=== PATIENT | male | born 1960 | race Caucasian/White ===

== ENCOUNTER 2016-03-30 10:58 | Inpatient (IN) | payer MEDICARE ==
[~2016-03-30] VITALS: Ht 180.3 cm; Wt 95.3 kg
[2016-03-30 11:24] LABS: BASOPHILS % (AUTO) 0.4 % (0.0-2.0); DIFF TOTAL % 100 %; EOSINOPHILS # (AUTO) 0.1 /CMM (0.0-0.7); EOSINOPHILS % (AUTO) 0.6 % (0.0-6.0); HEMATOCRIT 35 % (39-51); HEMOGLOBIN 11.8 g/dL (13.5-17.5); LYMPHOCYTES # (AUTO) 0.7 /CMM (0.8-4.8); LYMPHOCYTES % (AUTO) 7.3 % (20.0-44.0); MEAN CORPUSCULAR HEMOGLOBIN 30 PG (26.0-33.0); MEAN CORPUSCULAR HGB CONC 33 g/dl (31.0-36.0); MEAN CORPUSCULAR VOLUME 88 fL (80-96); MONOCYTES # (AUTO) 0.6 /CMM (0.1-1.30); MONOCYTES % (AUTO) 6.2 % (2.0-12.0); NEUTROPHILS % (AUTO) 85.5 % (43.0-81.0); PLATELET COUNT (AUTO) 248 /CMM (150-450); WHITE BLOOD COUNT (AUTO) 9.4 K/uL (4.3-11.0)
[2016-03-30 11:41] LABS: INR 1.11 (0.87-1.13)
[2016-03-30 11:46] LABS: ALBUMIN 4.1 g/dL (3.4-5.0); BILIRUBIN,DIRECT 0.2 mg/dL (0.0-0.2); BILIRUBIN,TOTAL 0.6 mg/dL (0.2-1.0); CALCIUM, SERUM 9.3 mg/dL (8.5-10.1); INDIRECT BILIRUBIN 0.4 mg/dL (0.0-1.1); TOTAL PROTEIN, SERUM 8.2 g/dL (6.4-8.2); TROPONIN I 0.133 ng/mL (0.00-0.056)
[2016-03-30 11:49] LABS: CREATININE 10.4 mg/dL (0.6-1.3); POTASSIUM 6.6 mmol/L (3.5-5.1)
[2016-03-30] MEDS ORDERED: DEXTROSE 50%-WATER 50 ML DISP.SYRIN ONE (11:54)
[2016-03-30] MEDS ORDERED: INSULIN REGULAR, HUMAN 100 UNIT/ML 10 ML VIAL ONE (11:54)
[2016-03-30] MEDS ORDERED: INSULIN REGULAR, HUMAN 100 UNIT/ML 10 ML VIAL IV ONE (12:00)
[2016-03-30] MEDS ORDERED: DEXTROSE 50%-WATER 50 ML DISP.SYRIN IV ONE ×2 (12:00)
[2016-03-30] MEDS ORDERED: FUROSEMIDE 40 MG/4 ML VIAL IV ONE (12:00)
[2016-03-30] MEDS ORDERED: FUROSEMIDE 40 MG/4 ML VIAL ONE (12:12)
[2016-03-30] MEDS ORDERED: METO-295 PO (12:22)
[2016-03-30] MEDS ORDERED: METO25TA20 PO (12:22)
[2016-03-30] MEDS ORDERED: VALS80TA2 PO (12:22)
[2016-03-30] MEDS ORDERED: AMIT25TA9 PO (12:22)
[2016-03-30] MEDS ORDERED: CLON0.1T PO (12:22)
[2016-03-30] MEDS ORDERED: SILD20TA PO (12:22)
[2016-03-30] MEDS ORDERED: BLOO-668 IN (12:22)
[2016-03-30] MEDS ORDERED: INSU100V27 SQ (12:22)
[2016-03-30] MEDS ORDERED: PANT40TA4 PO (12:22)
[2016-03-30] MEDS ORDERED: MINO10TA2 PO (12:22)
[2016-03-30] MEDS ORDERED: SEVE800T8 PO (12:22)
[2016-03-30] MEDS ORDERED: NORT25CA PO (12:22)
[2016-03-30] MEDS ORDERED: LABETALOL HCL IV 100MG VIAL ONE (12:42)
[2016-03-30] MEDS ORDERED: LABETALOL HCL IV 100MG VIAL IV ONE (13:00)
[2016-03-30] MEDS ORDERED: hydrALAZINE HCL IV 20 MG VIAL IV ONE (13:30)
[2016-03-30] MEDS ORDERED: hydrALAZINE HCL IV 20 MG VIAL ONE (13:35)
[2016-03-30] MEDS ORDERED: BLOOD SUGAR DIAGNOSTIC 1 EACH STRIP IN SCH (14:00)
[2016-03-30] MEDS ORDERED: ASPIRIN EC 325 MG TABLET.DR PO SCH (14:00)
[2016-03-30] MEDS ORDERED: PANTOPRAZOLE 40 MG TABLET.DR PO SCH (14:00)
[2016-03-30] MEDS: SILDENAFIL CITRATE 20 MG TABLET PO SCH ×2 (14:00→21:00)
[2016-03-30] MEDS: CLONIDINE HCL 0.1 MG TABLET PO SCH ×4 (14:00→22:01)
[2016-03-30] MEDS: METOPROLOL TARTRATE 25 MG TABLET PO SCH ×4 (14:00→22:02)
[2016-03-30] MEDS ORDERED: hydrALAZINE HCL IV 20 MG VIAL IV PRN (14:00)
[2016-03-30] MEDS: VALSARTAN 80 MG TABLET PO SCH ×2 (14:00→15:01)
[2016-03-30] MEDS: BLOOD SUGAR DIAGNOSTIC 1 EACH STRIP IN SCH ×4 (14:57→22:00)
[2016-03-30] MEDS: PANTOPRAZOLE 40 MG VIAL IV SCH (14:58)
[2016-03-30 16:00] VITALS: BP 133/103
[2016-03-30] MEDS ORDERED: ONDANSETRON HCL/PF 4 MG/2 ML VIAL IV PRN (16:00)
[2016-03-30 16:58] LABS: BASOPHILS % (AUTO) 0.5 % (0.0-2.0); DIFF TOTAL % 100 %; EOSINOPHILS % (AUTO) 0.1 % (0.0-6.0); HEMATOCRIT 33 % (39-51); HEMOGLOBIN 11.1 g/dL (13.5-17.5); LYMPHOCYTES # (AUTO) 0.6 /CMM (0.8-4.8); LYMPHOCYTES % (AUTO) 5.7 % (20.0-44.0); MEAN CORPUSCULAR HEMOGLOBIN 29 PG (26.0-33.0); MEAN CORPUSCULAR HGB CONC 33 g/dl (31.0-36.0); MEAN CORPUSCULAR VOLUME 88 fL (80-96); MONOCYTES # (AUTO) 0.9 /CMM (0.1-1.30); MONOCYTES % (AUTO) 9.3 % (2.0-12.0); NEUTROPHILS # (AUTO) 8.2 /CMM (1.8-8.9); NEUTROPHILS % (AUTO) 84.4 % (43.0-81.0); PLATELET COUNT (AUTO) 249 /CMM (150-450); RED BLOOD CELL COUNT(AUTO) 3.79 MIL/uL (4.5-6.0); WHITE BLOOD COUNT (AUTO) 9.8 K/uL (4.3-11.0)
[2016-03-30] MEDS: METOCLOPRAMIDE HCL 10 MG TABLET PO SCH (17:00)
[2016-03-30 17:18] LABS: INR 1.14 (0.87-1.13); PROTHROMBIN TIME 12.3 SECS (9.5-12.7)
[2016-03-30 17:19] LABS: BILIRUBIN,TOTAL 0.6 mg/dL (0.2-1.0); CALCIUM, SERUM 9.1 mg/dL (8.5-10.1); POTASSIUM 5.9 mmol/L (3.5-5.1); TOTAL PROTEIN, SERUM 7.9 g/dL (6.4-8.2)
[2016-03-30 17:20] LABS: ERYTHROCYTE SEDIMENTATION RATE 41 MM/HR (0-20); THYROID STIMULATING HORMONE 1.602 uIU/mL (0.358-3.74)
[2016-03-30 17:22] LABS: CREATININE 10.2 mg/dL (0.6-1.3)
[2016-03-30] MEDS ORDERED: HALOPERIDOL DECANOATE IM 100 MG/ML AMPUL IM ONE (17:30)
[2016-03-30] MEDS: SEVELAMER CARBONATE 800 MG TABLET PO SCH (18:00)
[2016-03-30] MEDS ORDERED: NORTRIPTYLINE HCL 25 MG CAPSULE PO SCH ×2 (18:00)
[2016-03-30] MEDS ORDERED: HALOPERIDOL LACTATE INJ 5 MG/ML VIAL IM ONE (18:00)
[2016-03-30 19:30] VITALS: BP 133/65
[2016-03-30 20:00] VITALS: BP 121/65
[2016-03-30 20:37] LABS: ABG BASE EXCESS 2.8 mmol/L; ABG HCO3 26.9 mmol/L; ABG PCO2 39.5 mmHg (35.0-45.0); ABG PH 7.451 (7.350-7.450); ABG PO2 56.7 mmHg (75.0-100.0); ABG TOTAL HEMOGLOBIN 11.7 G/dL (13.5-18.0); ALLEN TEST Pass; AaDO2 45.7 mmHg; O2Hb 84.7 % (94.0-97.0)
[2016-03-30] MEDS ORDERED: HEPARIN SODIUM, PORCINE 5000 UNITS/1 ML VIAL SQ SCH (21:00)
[2016-03-30] MEDS: AMITRIPTYLINE HCL 25 MG TABLET PO SCH ×2 (22:00→22:02)
[2016-03-31] VITALS: BP 142/53
[2016-03-31] MEDS ORDERED: IV NS 0.9% 1,000 ML ONE (00:34)
[2016-03-31] MEDS ORDERED: IV SET PRIMARY PUMP SET 1 EA INFUS.SET MC ONE (00:34)
[2016-03-31] MEDS: IV NS 0.9% 1,000 ML IV PRN ×2 (00:44→11:21)
[2016-03-31] MEDS: HALOPERIDOL LACTATE INJ 5 MG/ML VIAL IM PRN ×3 (02:25→20:43)
[2016-03-31] MEDS ORDERED: HALOPERIDOL LACTATE INJ 5 MG/ML VIAL ONE (03:57)
[2016-03-31] MEDS ORDERED: HALOPERIDOL LACTATE INJ 5 MG/ML VIAL IM STA (03:58)
[2016-03-31 04:00] VITALS: BP 132/68
[2016-03-31] MEDS: BLOOD SUGAR DIAGNOSTIC 1 EACH STRIP IN SCH ×7 (05:13→21:44)
[2016-03-31 05:53] LABS: BASOPHILS # (AUTO) 0.1 /CMM (0.0-0.2); BASOPHILS % (AUTO) 0.8 % (0.0-2.0); DIFF TOTAL % 100 %; EOSINOPHILS % (AUTO) 0.6 % (0.0-6.0); HEMATOCRIT 32 % (39-51); HEMOGLOBIN 10.7 g/dL (13.5-17.5); LYMPHOCYTES # (AUTO) 0.7 /CMM (0.8-4.8); LYMPHOCYTES % (AUTO) 10.1 % (20.0-44.0); MEAN CORPUSCULAR HEMOGLOBIN 30 PG (26.0-33.0); MEAN CORPUSCULAR HGB CONC 34 g/dl (31.0-36.0); MEAN CORPUSCULAR VOLUME 88 fL (80-96); MONOCYTES # (AUTO) 0.8 /CMM (0.1-1.30); MONOCYTES % (AUTO) 11.5 % (2.0-12.0); NEUTROPHILS # (AUTO) 5.3 /CMM (1.8-8.9); PLATELET COUNT (AUTO) 205 /CMM (150-450); RED BLOOD CELL COUNT(AUTO) 3.63 MIL/uL (4.5-6.0); WHITE BLOOD COUNT (AUTO) 6.9 K/uL (4.3-11.0)
[2016-03-31 06:00] LABS: CALCIUM, SERUM 9.3 mg/dL (8.5-10.1)
[2016-03-31 06:01] LABS: CREATININE 8.1 mg/dL (0.6-1.3)
[2016-03-31 07:12] LABS: INR 1.17 (0.87-1.13); PROTHROMBIN TIME 12.7 SECS (9.5-12.7)
[2016-03-31 08:00] VITALS: BP 130/62
[2016-03-31] MEDS: SEVELAMER CARBONATE 800 MG TABLET PO SCH ×3 (08:00→17:05)
[2016-03-31] MEDS: PANTOPRAZOLE 40 MG VIAL IV SCH (08:37)
[2016-03-31] MEDS: CLONIDINE HCL 0.1 MG TABLET PO SCH ×2 (08:44→21:43)
[2016-03-31] MEDS: METOPROLOL TARTRATE 25 MG TABLET PO SCH ×2 (08:45→21:44)
[2016-03-31] MEDS: MINOXIDIL (10MG) 10 MG TABLET PO SCH (08:45)
[2016-03-31] MEDS: VALSARTAN 80 MG TABLET PO SCH (08:45)
[2016-03-31] MEDS: SILDENAFIL CITRATE 20 MG TABLET PO SCH ×2 (08:45→21:00)
[2016-03-31] MEDS: METOCLOPRAMIDE HCL 10 MG TABLET PO SCH ×3 (08:45→16:02)
[2016-03-31 12:00] VITALS: BP 125/68
[2016-03-31] MEDS: ASPIRIN EC 81 MG TABLET.DR PO SCH (13:25)
[2016-03-31 16:00] VITALS: BP 159/92
[2016-03-31 20:00] VITALS: BP 176/112
[2016-03-31] MEDS: AMITRIPTYLINE HCL 25 MG TABLET PO SCH (21:43)
[2016-03-31] MEDS ORDERED: TEMAZEPAM 15 MG CAPSULE ONE (22:12)
[2016-03-31] MEDS ORDERED: TEMAZEPAM 15 MG CAPSULE PO PRN (22:30)
[2016-03-31] MEDS ORDERED: CLONIDINE HCL 0.1 MG TABLET PO PRN (22:30)
[2016-04-01] MEDS: HALOPERIDOL LACTATE INJ 5 MG/ML VIAL IM PRN (03:27)
[2016-04-01 04:00] VITALS: BP 159/105
[2016-04-01] MEDS: BLOOD SUGAR DIAGNOSTIC 1 EACH STRIP IN SCH ×4 (07:30→21:36)
[2016-04-01 08:00] VITALS: BP 178/101
[2016-04-01] MEDS: METOPROLOL TARTRATE 25 MG TABLET PO SCH ×2 (08:56→21:36)
[2016-04-01] MEDS: CLONIDINE HCL 0.1 MG TABLET PO SCH ×2 (08:56→21:36)
[2016-04-01] MEDS: ASPIRIN EC 81 MG TABLET.DR PO SCH (08:56)
[2016-04-01] MEDS: SEVELAMER CARBONATE 800 MG TABLET PO SCH ×3 (08:56→17:48)
[2016-04-01] MEDS: PANTOPRAZOLE 40 MG VIAL IV SCH (08:57)
[2016-04-01] MEDS: VALSARTAN 80 MG TABLET PO SCH (08:57)
[2016-04-01] MEDS: METOCLOPRAMIDE HCL 10 MG TABLET PO SCH ×3 (08:57→17:48)
[2016-04-01] MEDS: MINOXIDIL (10MG) 10 MG TABLET PO SCH (08:58)
[2016-04-01] MEDS: SILDENAFIL CITRATE 20 MG TABLET PO SCH ×2 (12:07→21:36)
[2016-04-01 16:00] VITALS: BP 146/61
[2016-04-01] MEDS ORDERED: BLOOD SUGAR DIAGNOSTIC 1 EACH STRIP IN SCH (17:30)
[2016-04-01] MEDS ORDERED: INSULIN REGULAR, HUMAN 100 UNIT/ML 3 ML VIAL SQ PRN (18:30)
[2016-04-01] MEDS ORDERED: DEXTROSE 50%-WATER 50 ML DISP.SYRIN IV PRN (18:30)
[2016-04-01 20:00] VITALS: BP 138/88
[2016-04-01] MEDS ORDERED: AMITRIPTYLINE HCL 25 MG TABLET PO SCH (22:00)
[2016-04-02 04:00] VITALS: BP 145/82
[2016-04-02 08:00] VITALS: BP 145/49
[2016-04-02] MEDS: PANTOPRAZOLE 40 MG VIAL IV SCH (08:24)
[2016-04-02] MEDS: BLOOD SUGAR DIAGNOSTIC 1 EACH STRIP IN SCH ×2 (08:24→11:47)
[2016-04-02] MEDS: SEVELAMER CARBONATE 800 MG TABLET PO SCH ×2 (08:25→12:47)
[2016-04-02] MEDS: METOCLOPRAMIDE HCL 10 MG TABLET PO SCH ×2 (08:25→12:47)
[2016-04-02] MEDS: ASPIRIN EC 81 MG TABLET.DR PO SCH (08:25)
[2016-04-02] MEDS: SILDENAFIL CITRATE 20 MG TABLET PO SCH (08:25)
[2016-04-02] MEDS: METOPROLOL TARTRATE 25 MG TABLET PO SCH (08:26)
[2016-04-02] MEDS: VALSARTAN 80 MG TABLET PO SCH (08:26)
[2016-04-02] MEDS: CLONIDINE HCL 0.1 MG TABLET PO SCH (08:26)
[2016-04-02] MEDS: INSULIN ASPART NOVOLOG 100 UNIT/ML CARTRIDGE SQ SCH ×2 (08:27→12:50)
[2016-04-02] MEDS: MINOXIDIL (10MG) 10 MG TABLET PO SCH (08:31)
[2016-04-02] MEDS: HALOPERIDOL LACTATE INJ 5 MG/ML VIAL IM PRN (15:15)
[2016-04-02 16:00] VITALS: BP 121/68
== END 2016-04-02 17:37 | disposition home or self-care (01) | DRG 280 ==
LOC: EDSEX 11:00 → ER 11:00 → TELE-TD 13:24 → MEDSG1 03-31 12:37
PROVIDERS: ADMIT Internal Medicine; ATTEND Internal Medicine
PROC: 5A1D60Z (ICD-10-PCS; principal; 2016-03-30)
DX: I16.0 Hypertensive urgency (principal); I21.4 Non-ST elevation (NSTEMI) myocardial infarction; I50.33 Acute on chronic diastolic (congestive) heart failure; N18.6 End stage renal disease; I67.4 Hypertensive encephalopathy; K92.1 Melena; I13.2 Hypertensive heart and chronic kidney disease with heart failure and with stage 5 chronic kidney disease, or end stage renal disease; D63.8 Anemia in other chronic diseases classified elsewhere; E11.22 Type 2 diabetes mellitus with diabetic chronic kidney disease; E87.5 Hyperkalemia; Z86.73 Personal history of transient ischemic attack (TIA), and cerebral infarction without residual deficits; Z99.2 Dependence on renal dialysis; I27.2 Other secondary pulmonary hypertension; I25.10 Atherosclerotic heart disease of native coronary artery without angina pectoris; F32.9 Major depressive disorder, single episode, unspecified; F41.9 Anxiety disorder, unspecified; R91.8 Other nonspecific abnormal finding of lung field; N18.9 Chronic kidney disease, unspecified
CPT/HCPCS: 36415; 36600; 70450-TC; 71010-TC; 80048-TC; 80053-TC; 80061-TC; 80076-TC; 82140-TC; 82962-TC; 83880; 84443-TC; 84484-TC; 85025-TC; 85652-TC; 85730-TC; 87081-TC; 90935-TC; 92611-TC; 93307-TC; 93880-TC; 95819-TC; 97116-TC; 97530-TC; C9113; J0360; J1630; J1631; J1815; J1940; J2405; J3490; J7030; J8597; Z7610